=== PATIENT | female | born 1970 | race Two or more races ===

== ENCOUNTER 2022-07-10 23:42 | Emergency (ER) | payer OTHER ==
[~2022-07-10] VITALS: Ht 165.1 cm; Wt 77.0 kg
[2022-07-11 01:00] LABS: Basophils # (auto) 0 10 ^3/uL (0-0.2); Basophils % (auto) 0.5 % (0.0-2.0); Eosinophils # (auto) 0.4 10 ^3/uL (0-0.8); Eosinophils % (auto) 5.2 % (0.0-7.0); Hematocrit 36.3 % (36.0-46.0); Hemoglobin 11.9 g/dL (12.2-16.2); Lymphocytes # (auto) 0.9 10 ^3/uL (0.4-5.4); Lymphocytes % (auto) 10.7 % (10.0-50.0); Mean Corpuscular Hemoglobin 28.4 pg (28.0-32.0); Mean Corpuscular Hgb Conc. 32.8 g/dL (32.0-36.0); Mean Corpuscular Volume 86.8 fL (80.0-100.0); Monocytes # (auto) 0.5 10 ^3/uL (0-1.3); Monocytes % (auto) 5.5 % (0.0-12.0); Neutrophils # (auto) 6.5 10 ^3/uL (1.6-8.6); Neutrophils % (auto) 78.1 % (37.0-80.0); Red Blood Cells 4.18 10^6/uL (4.0-5.20); Red Cell Distribution Width 13.4 % (11.8-14.3); White Blood Cell 8.3 10^3/uL (4.4-10.8)
[2022-07-11 01:23] LABS: BUN/Creatinine Ratio 17.5; Calcium 8.1 mg/dL (8.5-10.1); Potassium 4.7 mmol/L (3.5-5.1)
[2022-07-11 01:27] LABS: Bilirubin, Total 0.2 mg/dL (0.2-1.0); Total Protein 7.1 g/dL (6.4-8.2)
[2022-07-11 08:32] VITALS: BP 129/69
== END 2022-07-11 09:51 | disposition home or self-care (01) ==
LOC: ER 23:42
DX: R07.89 Other chest pain (principal); E11.65 Type 2 diabetes mellitus with hyperglycemia; I10 Essential (primary) hypertension; Z90.49 Acquired absence of other specified parts of digestive tract; Z90.89 Acquired absence of other organs
CPT/HCPCS: 36415; 71045; 80053; 83880; 84484; 85025; 93005

== ENCOUNTER 2025-09-20 09:06 | Outpatient (CLI) | payer OTHER ==
[2025-09-20] VITALS (13 sets, daily range): BP systolic 137–148; BP diastolic 64–100; PULSE 64–72; RESP 12–18; O2SAT 95–98
[~2025-09-20] VITALS: Ht 30.5 cm; Wt 0.5 kg
[2025-09-20] MEDS ORDERED: LIDOCAINE 2%HCL (LOCAL ANESTH.) INJ 10ml MDV ONE (09:27)
[2025-09-20] MEDS ORDERED: GELATIN 1 SPONGE SIZE 50 TOP ONE (09:27)
[2025-09-20] MEDS ORDERED: MIDAZOLAM HCL 2MG/2ML 2ml VIAL (1mg/ml) IV ONE (09:30)
[2025-09-20] MEDS ORDERED: fentaNYL CITRATE 100 MCG/2 ML VL IV ONE (09:30)
[2025-09-20] MEDS ORDERED: MIDAZOLAM HCL 2MG/2ML 2ml VIAL (1mg/ml) ONE (09:31)
[2025-09-20] MEDS ORDERED: fentaNYL CITRATE 100 MCG/2 ML VL ONE (09:31)
--- NOTE | 2025-09-20 15:04 | DVH ---
PROCEDURE: CT GUIDED BIOPSY OF left kidney HISTORY: GLOMERULONEPHRITIS PROTEINURIA DOCUMENTATION: Informed consent was obtained and a procedural time out was performed. SEDATION: Moderate sedation was utilized during the procedure. The patient received benzodiazepines and opioids, the dosing of which was documented in the patients permanent medical record. Pre-sedation history and evaluation revealed no contraindications to sedation. The patients level of consciousness and physiologic status was monitored continuously by the physician and nursing staff throughout the procedure. Total intra-service moderate sedation time was 30 minutes. TECHNIQUE: The skin over the left kidney was sterilely prepped, draped, and infiltrated with 1% lidocaine. Using CT guidance, a 17-gauge coaxial needle was directed into left kidney. The 18-gauge [place] biopsy needle was inserted coaxially and a total of 3 core biopsy specimens were obtained. The coaxial needle was then removed and hemostasis was achieved with manual compression. Sterile dressings were applied. FINDINGS: Limited CT imaging demonstrates no evidence of hematoma. Imaging confirms the needle tip within left kidney. Post-biopsy CT imaging showed no apparent complication. IMPRESSION: 1. SUCCESSFUL CT GUIDED BIOPSY OF LEFT KIDNEY. 2. PLEASE FOLLOW UP WITH PATHOLOGY FOR FINAL RESULTS. 3. Radiation Dose: CTDI is 11.8 mGy. 4. DLP is 354.3 mGy-cm.
== END 2025-09-20 17:00 | disposition home or self-care (01) ==
LOC: CT 09:06 → EDUNIT# 09:06 → CT 17:00
PROVIDERS: ATTEND Internal Medicine
DX: E11.21 Type 2 diabetes mellitus with diabetic nephropathy (principal); I12.9 Hypertensive chronic kidney disease with stage 1 through stage 4 chronic kidney disease, or unspecified chronic kidney disease; E11.22 Type 2 diabetes mellitus with diabetic chronic kidney disease; N18.4 Chronic kidney disease, stage 4 (severe); E11.40 Type 2 diabetes mellitus with diabetic neuropathy, unspecified; E78.2 Mixed hyperlipidemia; E07.9 Disorder of thyroid, unspecified; F41.9 Anxiety disorder, unspecified; Z79.899 Other long term (current) drug therapy; Z86.2 Personal history of diseases of the blood and blood-forming organs and certain disorders involving the immune mechanism; Z90.710 Acquired absence of both cervix and uterus; Z90.49 Acquired absence of other specified parts of digestive tract; Z98.890 Other specified postprocedural states
CPT/HCPCS: 50200; 77012; 88300; J2003; J2250; J3010; 10005; 74150